=== PATIENT | male | born 1930 | race African-American/Black ===

== ENCOUNTER → 2016-12-22 | Outpatient (CLI) | payer MEDICARE, OTHER ==
[~2016-12-22] MED LIST: ADVAIR 250-501 EACH IH; ADVAIR 500-501 EACH INH; ALBUTEROL2.5 MG/3 M INH; ALPRAZOLAM0.5 MG PO; CAPOZIDE 25/15 T1 EA PO; FUROSEMIDE20 MG PO; GLIPIZIDE ER2.5 MG PO; IPRAT-ALBUT 0.5-3 ML INH; LASIX20 MG PO; LEVAQUIN750 MG PO; MEGACE400 MG/10 PO; MIRALAX PACK 171 PKT PO; NORVASC 5 MG TAB5 MG PO; NOVOLOG 10100 UNITS/ INJ; NOVOLOG100 UNIT/1 SQ; PREDNISONE 10 M10 MG PO; PREDNISONE 20 M20 MG PO; PREDNISONE10 MG PO; PROTONIX 40 MG40 M1 PO; PROTONIX40 MG PO; SENOKOT-S TABL1 EACH PO; SIMVASTATIN20 MG PO; SPIRIVA HANDIH18 MCG INH; SPIRIVA18 MCG INH; TENORMIN 25 MG25 MG PO; TYLENOL 325MG325 MG PO; VENTOLIN/PROVE0.5 ML INH
== END ==
LOC: CT 11:21
DX: N28.1 Cyst of kidney, acquired (principal)